=== PATIENT | female | born 1975 | race Caucasian/White ===

== ENCOUNTER 2016-08-14 10:48 | Outpatient (CLI) ==
[2014-03-27 16:55] VITALS: BMI 29.2
[2016-08-14 11:07] LABS: BASOPHILS # (AUTO) 0.1 K/uL (0-0.2); BASOPHILS % (AUTO) 0.7 % (0.0-3.0); EOSINOPHILS # (AUTO) 0.2 K/ul (0.0-0.7); HEMATOCRIT 43.3 % (37.0-47.0); HEMOGLOBIN 14.1 g/dl (12.0-16.0); IMMATURE GRANULOCYTE % (AUTO) 0.3 % (0.0-5.0); LYMPHOCYTES # (AUTO) 2.1 K/uL (0.60-3.4); LYMPHOCYTES % (AUTO) 28.8 (10.0-50.0); MEAN CORPUSCULAR HEMOGLOBIN 29.3 pg (27.0-31.0); MEAN CORPUSCULAR HGB CONC 32.6 (31.8-35.4); MEAN CORPUSCULAR VOLUME 89.8 fl (81.0-99.0); MONOCYTES # (AUTO) 0.6 K/uL (0.4-2.0); MONOCYTES % (AUTO) 8.4 (0-10); NEUTROPHILS # (AUTO) 4.4 K/ul (2.0-6.9); NEUTROPHILS % (AUTO) 59.8; PLATELET COUNT 475 10^3/uL (140-440); RED BLOOD COUNT 4.82 10^6/ul (4.20-5.40); WHITE BLOOD COUNT 7.35 K/ul (4.6-10.2)
[2016-08-14 11:47] LABS: ALBUMIN 4.2 g/dL (3.4-5.0); ALBUMIN/GLOBULIN RATIO 1.17; ANION GAP 14.3; BILIRUBIN,TOTAL 0.4 mg/dL (0.00-1.20); BUN/CREATININE RATIO 22.5; CALCIUM 9.7 mg/dL (8.2-10.2); CHOL/HDL RATIO 4.3 (4.5-5.5); CREATININE 0.8 mg/dL (0.60-1.30); POTASSIUM 4.3 mmol/L (3.5-5.10); TOTAL PROTEIN 7.8 g/dL (6.4-8.2)
== END 2016-08-14 10:49 | disposition home or self-care (01) ==
LOC: LAB 10:48
PROVIDERS: ATTEND Nurse Practitioner Family
DX: F41.8 Other specified anxiety disorders (principal); E03.9 Hypothyroidism, unspecified
CPT/HCPCS: 36415; 80053; 80061; 84443; 85025

== ENCOUNTER 2016-08-18 09:09 | Outpatient (CLI) ==
[2014-03-27 16:55] VITALS: BMI 29.2
--- NOTE | 2016-08-18 10:15 | MAMMO ---
EXAM: Bilateral digital diagnostic mammogram History: 6-month follow-up bilateral breast nodules and palpable abnormality within the left axilla . Comparison: Bilateral mammogram 04/04/2016 Findings: MLO and CC views of bilateral breasts demonstrate heterogeneously dense breast parenchyma which can obscure small lesions. Stable benign bilateral breast nodules. There are no developing m asses and no suspicious microcalcifications. Impression: Although there are no mammographic abnormalities identified to correlate with the palpa ble area in the left axilla, recommend further evaluation with left axillary ultrasound. BIRADS 0
--- NOTE | 2016-08-18 10:30 | US ---
EXAM: Left axillary ultrasound. History: Left axillary palpable abnormality. Comparison: Bilateral mammogram 08/18/2016 Technique: Multiple sonographic images through the left axilla were obtained. Color duplex Doppler was used to interrogate vascular flow. Findings: No masses, cysts or abnormal lymph nodes are seen. Impression: No sonographic evidence of malignancy. Recommend return to routine screening mammograp hy schedule. BIRADS 2
== END 2016-08-18 09:10 | disposition home or self-care (01) ==
LOC: RAD 09:09
PROVIDERS: ATTEND Nurse Practitioner Family
DX: R92.2 Inconclusive mammogram (principal); E65 Localized adiposity
CPT/HCPCS: 76882

== ENCOUNTER 2017-02-03 07:36 | Outpatient (CLI) ==
[2014-03-27 16:55] VITALS: BMI 29.2
[2017-02-03 08:38] LABS: ALANINE AMINOTRANSFERASE 23 U/L (12-78); ALBUMIN 4.5 g/dL (3.4-5.0); ALBUMIN/GLOBULIN RATIO 1.18; ALKALINE PHOSPHATASE 99 U/L (42-98); ANION GAP 15.9; ASPARTATE AMINO TRANSFERASE 18 U/L (15-37); BILIRUBIN,TOTAL 0.57 mg/dL (0.00-1.20); BLOOD UREA NITROGEN 16 mg/dL (7-18); CALCIUM 10.2 mg/dL (8.2-10.2); CARBON DIOXIDE 27 mmol/L (21-32); CHLORIDE 102 mmol/L (98-107); CHOL/HDL RATIO 5.2 (4.5-5.5); CHOLESTEROL 269 mg/dL (0-200); GLUCOSE 99 mg/dL (70-110); HDL CHOLESTEROL 52 mg/dL (35-80); POTASSIUM 3.9 mmol/L (3.5-5.10); SODIUM 141 mmol/L (136-145); TOTAL PROTEIN 8.3 g/dL (6.4-8.2); TRIGLYCERIDES 253 mg/dL (30-150); VLDL CHOLESTEROL 51 mg/dL (2-30)
== END 2017-02-03 07:37 | disposition home or self-care (01) ==
LOC: LAB 07:36
PROVIDERS: ATTEND Nurse Practitioner Family
DX: E78.2 Mixed hyperlipidemia (principal); E03.9 Hypothyroidism, unspecified
CPT/HCPCS: 36415; 80053; 80061; 84443

== ENCOUNTER 2018-09-21 11:54 | Outpatient (CLI) ==
[2014-03-27 16:55] VITALS: BMI 29.2
== END 2018-09-21 11:55 | disposition home or self-care (01) ==
LOC: RHC-LAB 11:54
PROVIDERS: ATTEND Nurse Practitioner Family
DX: Z00.00 Encounter for general adult medical examination without abnormal findings (principal); F41.8 Other specified anxiety disorders; E78.5 Hyperlipidemia, unspecified; E03.9 Hypothyroidism, unspecified
CPT/HCPCS: 36415; 80053; 80061; 84443; 85025

== ENCOUNTER 2018-09-24 09:22 | Outpatient (CLI) ==
[2014-03-27 16:55] VITALS: BMI 29.2
--- NOTE | 2018-09-24 10:27 | MAMMO ---
EXAM: Bilateral digital screening mammogram (2-D and 3-D) History: Screening Comparison: Bilateral mammogram 08/18/2016 Findings: MLO and CC views of bilateral breasts demonstrate heterogeneously dense breast parenchyma. CAD was reviewed by the radiologist. Tomosynthesis was performed. There are no dominant masses, n o suspicious microcalcifications and no architectural distortions Impression: Stable negative mammogram. Recommend followup routine screening mammography in 1 year. BIRADS 1, negative
== END 2018-09-24 09:23 | disposition home or self-care (01) ==
LOC: RAD 09:22
PROVIDERS: ATTEND Nurse Practitioner Family
DX: Z12.31 Encounter for screening mammogram for malignant neoplasm of breast (principal)

== ENCOUNTER 2018-11-01 12:29 | Outpatient (CLI) ==
[2014-03-27 16:55] VITALS: BMI 29.2
== END 2018-11-01 12:30 | disposition home or self-care (01) ==
LOC: RHC-LAB 12:29 → FCC-LAB 12:30
PROVIDERS: ATTEND Family Medicine
DX: E03.9 Hypothyroidism, unspecified (principal)
CPT/HCPCS: 36415; 84443

== ENCOUNTER 2019-01-12 12:10 | Outpatient (CLI) ==
[2016-04-25 09:57] VITALS: BMI 29.2
--- NOTE | 2019-01-12 16:01 | DI ---
EXAM: Left knee four view HISTORY: Pain in left knee COMPARISON: None FINDINGS: The bones are normal. The medial, lateral, and patellofemoral compartments are normal in h eight. No joint effusion. IMPERSSION: Normal examination.
--- NOTE | 2019-01-12 16:03 | DI ---
EXAM: Thoracic spine three view HISTORY: Pain in thoracic spine COMPARISON: None FINDINGS: The vertebral bodies are normal in height. No subluxation. Mild reversal of the normal ce rvical lordosis in the cervical spine. Small multilevel marginal osteophyte formation. Intervertebra l disk spaces are maintained. No fracture. IMPERSSION: 1. Mild chronic discogenic degenerative disease. 2. Mild reversal of the normal cervical lordosis in the cervical spine
== END 2019-01-12 12:11 | disposition home or self-care (01) ==
LOC: RAD 12:10
PROVIDERS: ATTEND Family Medicine
DX: E03.9 Hypothyroidism, unspecified (principal); M54.6 Pain in thoracic spine; M25.562 Pain in left knee; R51 Headache; G89.29 Other chronic pain; R93.89 Abnormal findings on diagnostic imaging of other specified body structures
CPT/HCPCS: 36415; 83520; 84443; 86038; 86256; 86617